=== PATIENT | male | born 1970 | race Two or more races ===

== ENCOUNTER 2018-02-04 00:59 | Inpatient (IN) | payer OTHER ==
[~2018-02-04] VITALS: Ht 165.1 cm; Wt 70.3 kg
[2018-02-04 03:40] VITALS: BP 111/68
[2018-02-04] MEDS ORDERED: CARB200T PO (04:32)
[2018-02-04] MEDS ORDERED: SIMV10TA2 PO (04:32)
[2018-02-04] MEDS ORDERED: ASPI-1169 PO (04:32)
--- NOTE | 2018-02-04 04:37 | NUR ---
INTERVENTIONAL PHYSIATRIST NOTES RECEIVE PT FROM [place] AT 0335 VIA [facility] WITH 2 EMT, A/O X 4, TOLERATING ROOM AIR AT 100%, IN STABLE CONDITION NO SOB NO COMPLAIN CHEST PAIN, HEAD TO TOE ASSESSMENT IS DONE SKIN IS INTACT, NOT IN DISTRESS. VS STABLE. HEALTH EDUCATION PROVIDED TO THE PT. WILL MONITOR. SAFETY MEASURES IMPLEMENTED. PT HAVE $800 DOLLARS IN WALLET, PT WANTS TO KEEP HIS WALLET WITH HIM AT BEDSIDE DESPITE EXPLAINING RISKS AND BENEFITS. ATTACH TO TELE MONITOR WITH READING OF 55'S
--- NOTE | 2018-02-04 04:48 | NUR ---
PAGED AWAITING ADMIT ORDERS
[2018-02-04] MEDS ORDERED: NITROGLYCERIN 0.4 MG/TAB BOTTLE SL PRN (05:30)
[2018-02-04] MEDS ORDERED: ZOLPIDEM TARTRATE 5 MG TABLET PO PRN (05:30)
[2018-02-04] MEDS ORDERED: HYDROCODONE/APAP 5/325MG 1 EACH TABLET PO PRN (05:30)
[2018-02-04] MEDS ORDERED: ACETAMINOPHEN 325 MG TABLET PO PRN (05:30)
[2018-02-04] MEDS ORDERED: Z GUARD REMEDY 2 OZ OINT TP PRN (05:30)
[2018-02-04] MEDS ORDERED: MAGNESIUM HYDROXIDE 30 ML UDC PO PRN (05:30)
[2018-02-04] MEDS ORDERED: CARBAMAZEPINE 200 MG TABLET PO PRN (05:30)
[2018-02-04] MEDS ORDERED: MAG HYDROX/AL HYDROX/SIMETH 30 ML UDC PO PRN (05:30)
[2018-02-04] MEDS ORDERED: MORPHINE SULFATE INJ 2 MG/ML DISP.SYRIN IV PRN (05:30)
[2018-02-04] MEDS ORDERED: ONDANSETRON HCL/PF 4 MG/2 ML VIAL IVP PRN (05:30)
--- NOTE | 2018-02-04 06:20 | NUR ---
MS RN CLOSING NOTES PT COMFORTABLY ASLEEP AND EASILY AWAKEN, A/O X 3, TOLERATING ROOM AIR 100% STABLE CONDITION. RESPIRATION EVEN AND UNLABORED. KEPT CLEAN AND DRY AND COMFORTABLE, ALL NURSING CARE RENDERED. NEEDS ATTENDED AND ANTICIPATED, NO COMPLAINS OF PAIN/CHEST PAIN. ON LOW BED AT ALL TIMES TO ENSURE SAFETY. SAFE HAZARD FREE ENVIRONMENT PROVIDED. NO COMPLAINS OF PAIN. CALL LIGHT WITHIN EASY TO REACH. WILL ENDORSE NEXT SHIFT CONTINUITY OF CARE. Addendum: 02/04/18 at 0622 by AINSLEY PAN RN ATTACH TO TELE 55
[2018-02-04 06:46] LABS: BASOPHILS % (AUTO) 0.7 % (0.0-2.0); EOSINOPHILS % (AUTO) 2.5 % (0.0-6.0); HEMATOCRIT 42 % (39-51); HEMOGLOBIN 13.8 g/dL (13.5-17.5); LYMPHOCYTES # (AUTO) 1.6 /CMM (0.8-4.8); LYMPHOCYTES % (AUTO) 37.5 % (20.0-44.0); MEAN CORPUSCULAR HEMOGLOBIN 27 PG (26.0-33.0); MEAN CORPUSCULAR HGB CONC 33 g/dl (31.0-36.0); MEAN CORPUSCULAR VOLUME 81 fL (80-96); MONOCYTES # (AUTO) 0.3 /CMM (0.1-1.30); MONOCYTES % (AUTO) 6.2 % (2.0-12.0); NEUTROPHILS # (AUTO) 2.3 /CMM (1.8-8.9); NEUTROPHILS % (AUTO) 53.1 % (43.0-81.0); PLATELET COUNT (AUTO) 247 /CMM (150-450); RDW COEFFICIENT OF VARIATION 12.7 (11.5-15.0); RED BLOOD CELL COUNT(AUTO) 5.13 MIL/uL (4.5-6.0); WHITE BLOOD COUNT (AUTO) 4.3 K/uL (4.3-11.0)
[2018-02-04 07:06] LABS: ALANINE AMINOTRANSFERASE 62 U/L (12-78); ALBUMIN 3.7 g/dL (3.4-5.0); ALKALINE PHOSPHATASE 50 U/L (46-116); ASPARTATE AMINOTRANSFERASE 34 U/L (15-37); BILIRUBIN,TOTAL 0.8 mg/dL (0.2-1.0); CALCIUM, SERUM 8.6 mg/dL (8.5-10.1); CARBON DIOXIDE 29 mmol/L (21-32); CHLORIDE 104 mmol/L (98-107); CREATININE 0.9 mg/dL (0.6-1.3); GLUCOSE 104 mg/dL (74-106); PHOSPHORUS 2.9 mg/dL (2.5-4.9); POTASSIUM 3.8 mmol/L (3.5-5.1); SODIUM SERUM 140 mmol/L (136-145); TOTAL PROTEIN, SERUM 7.3 g/dL (6.4-8.2); UREA NITROGEN, BLOOD 9 mg/dL (7-18)
[2018-02-04 07:11] LABS: TROPONIN I < 0.017 ng/mL (0.00-0.056)
[2018-02-04 07:13] LABS: CHOLESTEROL 188 mg/dL (<200); HDL CHOLESTEROL 31 mg/dL (40-60); LDL 128 mg/dL (0-99); THYROID STIMULATING HORMONE 1.111 uIU/mL (0.358-3.74); TRIGLYCERIDES 156 mg/dL (30-150)
--- NOTE | 2018-02-04 07:19 | NUR ---
RN NOTES PT IS LAYING DOWN IN BED, AWAKE AND ALERT. PT ON RA, RESPIRATIONS ARE EVEN AND UNLABORED. IV ON RAC INTACT AND SL. TELE MONITOR SHOWS SB, 52. NO SIGNS OF DISTRESS NOTED. SAFETY MEASURES ARE IN PLACE, CALL LIGHT IS IN REACH. WILL CONTINUE TO MONITOR.
[2018-02-04] MEDS ORDERED: CARBAMAZEPINE 100 MG TAB.CHEW PO PRN (07:30)
[2018-02-04 08:00] VITALS: BP 102/66
[2018-02-04] MEDS: ASPIRIN 81 MG TAB.CHEW PO SCH (08:21)
[2018-02-04 16:00] VITALS: BP 106/71
[2018-02-04] MEDS ORDERED: SIMVASTATIN 10 MG TABLET PO SCH (18:00)
[2018-02-04] MEDS: SIMVASTATIN 10 MG TABLET PO SCH (18:05)
--- NOTE | 2018-02-04 18:42 | NUR ---
RN NOTES PT IS SITTING UP IN BED, AWAKE AND ALERT, RESTING COMFORTABLY. PT ON RA, RESPIRATIONS ARE EVEN AND UNLABORED. IV ON RFA INTACT AND SL. ALL MEDS WERE GIVEN ORDERED AND PT NEEDS MET. NO SIGNS OF DISTRESS NOTED. PT SCHEDULED FOR [facility] IN THE AM, PT VERBALIZES UNDERSTANDING AND CONSENT IS SIGNED. PT TO BE NPO AT MIDNIGHT FOR PREP.; SAFETY MEASURES ARE IN PLACE, CALL LIGHT IS IN REACH. WILL ENDORSE TO [employer] MAINTENANCE MECHANIC RN FOR CONTINUITY OF CARE.
--- NOTE | 2018-02-04 18:59 | NUR ---
MS RN OPENING NOTE RECEIVE PATIENT AWAKE IN BED, A/O X3, TOLERATING ROOM AIR 99% NO C/O OF PAIN. NO SOB OR DISTRESS NOTED, CALL LIGHT WITHIN REACH. SAFETY MEASURES IMPLEMENTED. WILL CONTINUE TO MONITOR THROUGHOUT SHIFT.
[2018-02-04 20:00] VITALS: BP 100/59
--- NOTE | 2018-02-05 06:16 | NUR ---
MS RN CLOSING NOTES PT COMFORTABLY ASLEEP AND EASILY AWAKEN,TOLERATING ROOM AIR 100%, A/O X 3, STABLE CONDITION. RESPIRATION EVEN AND UNLABORED. KEPT CLEAN AND DRY AND COMFORTABLE, MAINTAINS NPO AT MIDNIGHT. ALL NURSING CARE RENDERED. NEEDS ATTENDED AND ANTICIPATED, NO COMPLAINS OF CHEST PAIN THROUGHOUT THE SHIFT. ON LOW BED AT ALL TIMES TO ENSURE SAFETY. SAFE HAZARD FREE ENVIRONMENT PROVIDED. CALL LIGHT WITHIN EASY TO REACH. WILL ENDORSE NEXT SHIFT CONTINUITY OF CARE.
[2018-02-05 06:39] LABS: BASOPHILS % (AUTO) 0.6 % (0.0-2.0); EOSINOPHILS % (AUTO) 1.8 % (0.0-6.0); HEMATOCRIT 42 % (39-51); HEMOGLOBIN 13.7 g/dL (13.5-17.5); MEAN CORPUSCULAR HEMOGLOBIN 26 PG (26.0-33.0); MEAN CORPUSCULAR HGB CONC 33 g/dl (31.0-36.0); MEAN CORPUSCULAR VOLUME 81 fL (80-96); MONOCYTES # (AUTO) 0.3 /CMM (0.1-1.30); MONOCYTES % (AUTO) 7.2 % (2.0-12.0); NEUTROPHILS # (AUTO) 2.3 /CMM (1.8-8.9); NEUTROPHILS % (AUTO) 48.4 % (43.0-81.0); PLATELET COUNT (AUTO) 258 /CMM (150-450); RDW COEFFICIENT OF VARIATION 12.9 (11.5-15.0); RED BLOOD CELL COUNT(AUTO) 5.21 MIL/uL (4.5-6.0); WHITE BLOOD COUNT (AUTO) 4.8 K/uL (4.3-11.0)
[2018-02-05 06:57] LABS: CALCIUM, SERUM 8.9 mg/dL (8.5-10.1); MAGNESIUM 2.1 mg/dL (1.8-2.4); PHOSPHORUS 4.1 mg/dL (2.5-4.9); POTASSIUM 3.6 mmol/L (3.5-5.1)
[2018-02-05 07:01] LABS: THYROID STIMULATING HORMONE 0.994 uIU/mL (0.358-3.74)
--- NOTE | 2018-02-05 07:15 | NUR ---
MS RN OPENING NOTE RECEIVED PATIENT IN BED, ALERT ORIENTED X4. PATIENT IS SPANISH, SPEAKS AND IS ABLE TO COMMUNICATE NEEDS IN HIS LANGUAGE ONLY. ON ROOM AIR. TOLERATING WELL. RESPIRATIONS EVEN AND UNLABORED. IN NO APPARENT DISTRESS OR DISCOMFORT AT THIS TIME. PATIENT WITH BRP. WAS KEPT NPO SINCE MIDNIGHT FOR THE UPCOMING TEST. RIGHT AC 20G, SL. PATENT AND INTACT. KEPT CLEAN AND COMFORTABLE. SAFETY MEASURES IN PLACE, BED IN LOW LOCKED POSITION, SIDE RAILS UP X2, CALL LIGHT WITHIN EASY REACH. WILL CONTINUE TO MONITOR.
[2018-02-05 08:00] VITALS: BP 95/69
[2018-02-05] MEDS ORDERED: IV NS 0.9% 1,000 ML IV PRN (08:25)
[2018-02-05] MEDS: ASPIRIN 81 MG TAB.CHEW PO SCH (08:35)
[2018-02-05] MEDS ORDERED: IOHEXOL-350 100 ML VIAL IV ONE (10:52)
[2018-02-05] MEDS ORDERED: NITROGLYCERIN 0.4 MG/TAB BOTTLE ONE (11:32)
[2018-02-05 16:00] VITALS: BP 90/54
[2018-02-05] MEDS: SIMVASTATIN 10 MG TABLET PO SCH (17:15)
--- NOTE | 2018-02-05 18:30 | NUR ---
MS IMPORT DISPATCHER NOTE. DISCHARGE ORDER RECEIVED. PATIENT IS MEDICALLY CLEARED. IN STABLE CONDITION. VITAL SIGNS STABLE. BP: 105/68, HR: 56, TEMP: 97.5, O2 SAT: 98%, RR: 18. MEDICAL RECORDS, DISCHARGE SUMMERY AND INSTRUCTIONS PRINTED FOR THE PATIENT. EXPLAINED ALL THE ORDERS. MEDICATION EDUCATION PROVIDED. TEACHING PROVIDED REGARDING SIGNS AND SYMPTOMS AND DISEASE PROCESS. DC PAPERWORK SIGNED. VALUABLES CHECKED AND ACCOUNTED FOR. IVC REMOVED, TIP INTACT. ID BAND REMOVED. PATIENT IS INDEPENDENT AND AMBULATORY. STATED HAS SOMEONE WAITING FOR HIM DOWNSTAIRS TO TAKE HIM HOME. PATIENT WAS ESCORTED DOWN WITH LIZET CHOWDHURY AT 1830.
== END 2018-02-05 18:42 | disposition home or self-care (01) | DRG 203 ==
LOC: TELE 03:32 → MED 09:17
PROVIDERS: ADMIT Family Medicine; ATTEND Family Medicine
DX: R07.89 Other chest pain (principal); E78.5 Hyperlipidemia, unspecified
CPT/HCPCS: 36415; 75574; 80048-TC; 80053-TC; 80061-TC; 83735-TC; 84100-TC; 84443-TC; 84484-TC; 85025-TC; 87081-TC; 93307-TC; J7030; Q9967; Z7610